=== PATIENT | male | born 1975 ===

== ENCOUNTER → 2023-04-05 | Outpatient (REF) ==
[2023-04-05 15:33] LABS: RSV AMPLIFICATION NEGATIVE (NEGATIVE)
== END ==
LOC: M EMP 10:19
PROVIDERS: ATTEND Family Medicine
DX: Z20.822 Contact with and (suspected) exposure to COVID-19 (principal)

== ENCOUNTER → 2023-05-13 | Outpatient (REF) | LOC: M EMP 09:04 | PROVIDERS: ATTEND Family Medicine | DX: Z11.52 Encounter for screening for COVID-19 (principal) ==